=== PATIENT | female | born 1950 | race Caucasian/White ===

== ENCOUNTER 2017-10-23 07:37 | Outpatient (CLI) | payer MEDICARE, BC ==
--- NOTE | 2017-10-23 14:30 | NM ---
NUCLEAR GASTRIC EMPTYING EXAM: INDICATION: Functional dyspepsia. FINDINGS: Using geometric means, varying emptying times of the gastric lumen are performed. There is 13% empty ing at 23 minutes, 55% emptying at 99 minutes, 84% emptying at 168 minutes, and complete emptying erna culated at 219 minutes. The projected half-time is 94 minutes. IMPRESSION: Nuclear medicine gastric emptying exam, as discussed above. POS: [facility]
== END 2017-10-23 07:38 | disposition home or self-care (01) ==
LOC: NM 07:37
PROVIDERS: ATTEND Internal Medicine Gastroenterology
DX: K21.9 Gastro-esophageal reflux disease without esophagitis (principal)
CPT/HCPCS: 78264; A9541

== ENCOUNTER 2018-10-02 21:10 | Emergency (ER) | payer MEDICARE, BC ==
[2018-10-02 22:00] LABS: #Basophils 0.1 thou/uL (0.0-0.2); #Eosinphils 0.2 thou/uL (0.0-0.7); #Lymphocytes 3.5 thou/uL (1.20-3.40); #Monocytes 0.8 thou/uL (0.11-0.59); #Neutrophils 3.5 thou/uL (1.40-6.50); %Basophils 1.2 % (0.0-1.0); %Eosinophils 2.2 % (0.0-10.0); %Lymphocytes 43.8 % (21.0-51.0); %Monocytes 9.6 % (0.0-10.0); %Neutrophils 43.3 % (42.0-75.0); Hemoglobin 12.3 g/dL (12.0-16.0); Mean Corpuscular Hemoglobin 30.5 pg (27.0-31.0); Mean Corpuscular Volume 92.4 fL (78.0-98.0); Mean Platelet Volume 8.7 fL (7.4-10.4); Platelet Count 220 thou/uL (130-400); RBC Distribution Width 12.4 % (11.5-14.5); Red Blood Cell (RBC) Count 4.03 mill/uL (4.20-5.40); White Blood Cell (WBC) Count 8.1 thou/uL (4.8-10.8)
--- NOTE | 2018-10-02 22:06 | RAD ---
AP VIEW CHEST: 10/02/18 HISTORY: Cardiac palpitations. AP view chest obtained on 10/02/18. Comparison made to previous exam from 10/13/16. AP view chest demonstrates sternotomy wires seen. The intracardiac pacing device has been removed. No evidence of acute intrathoracic masses or lesions seen. No evidence of effusions seen. IMPRESSION: No evidence of acute intrathoracic abnormality seen. POS: [facility]
[2018-10-02 22:21] LABS: ALT (SGPT) 11 U/L (8-55); AST (SGOT) 14 U/L (5-34); Albumin 3.8 g/dL (3.4-4.8); Alkaline Phosphatase 70 U/L (40-150); Anion Gap 13 mmol/L (10-20); BUN (Urea Nitrogen) 14 mg/dL (9.8-20.1); Bilirubin, Total 0.4 mg/dL (0.2-1.2); Calc. Creatinine Clearance 0 mL/min (70-130); Calcium 8.9 mg/dL (7.8-10.44); Carbon Dioxide 22 mmol/L (23-31); Chloride 108 mmol/L (98-107); Estimated GFR-MDRD 42; Globulin 2.8 g/dL (2.4-3.5); Glucose 151 mg/dL (80-115); Potassium 3.8 mmol/L (3.5-5.1); Protein, Total 6.6 g/dL (6.0-8.3); Sodium 139 mmol/L (136-145)
== END 2018-10-03 00:20 | disposition home or self-care (01) ==
LOC: ERS 21:10
DX: R00.2 Palpitations (principal); F41.9 Anxiety disorder, unspecified; I48.91 Unspecified atrial fibrillation; E03.9 Hypothyroidism, unspecified; F32.9 Major depressive disorder, single episode, unspecified
CPT/HCPCS: 36415; 71045; 80053; 83880; 84443; 84484; 85025; 93005

== ENCOUNTER 2019-02-05 07:30 | Outpatient (CLI) | payer MEDICARE, BC ==
--- NOTE | 2019-02-05 08:33 | CT ---
CT chest with IV contrast: INDICATIONS:Exam performed in follow-up to a chest x-ray performed outside institution which describe d a nodular density right upper lung. COMPARISON:Chest film 10/02/2018 and 10/13/2016 FINDINGS: There is a 1.6 cm pleural-based nodular soft tissue mass density posterior right upper lung. There is mild associated pleural thickening. There are numerous other nodules seen in the right lung. More inferiorly there are two 4 mm nodular d ensity near the pleural surface laterally, image 43 5 mm nodule along the fissure, image 58 8 mm nodule along the fissure right mid lung, image 61 8 mm nodule near the hilum right mid lung, image 59. Two 4 to 6 mm nodules right lower lobe, image 66. 4 mm nodule right lower lobe, image 70. 5 mm nodule right lower lobe, image 80. 6 mm nodule left lower lobe, image 72. No other left lung nodules identified. No evidence of inflammatory infiltrate. No evidence of effusio n. No evidence of mediastinal or hilar adenopathy. Thoracic aorta is opacified and unremarkable. Proxima l pulmonary arteries are opacified and unremarkable. No evidence of proximal pulmonary embolus. Small fixed sliding diaphragmatic hernia. Images through upper abdomen reveal a cystic mass in the right upper lobe of liver under the hemidiap hragm measuring 5.5 cm. There are least 2 smaller cystic lesions in the liver, one in the left lobe measuring 1 cm. Another in the more inferior right lobe, incompletely evaluated. IMPRESSION: 1. There are numerous right lung pulmonary nodules and at least one nodule in the left lower lobe as described above. A pleural-based nodule in the posterior right upper lobe corresponds to the density seen on outside chest x-ray. Consider PET scan to assess for metastatic lesions. 2. Numerous cystic lesions in the liver, incompletely evaluated. 3. Fixed sliding diaphragmatic hernia
== END 2019-02-05 07:31 | disposition home or self-care (01) ==
LOC: BICCT 07:30
PROVIDERS: ATTEND Internal Medicine
DX: R91.8 Other nonspecific abnormal finding of lung field (principal); K44.9 Diaphragmatic hernia without obstruction or gangrene
CPT/HCPCS: 71260; 82565

== ENCOUNTER 2019-03-05 09:08 | Outpatient (CLI) | payer MEDICARE, BC ==
--- NOTE | 2019-03-05 13:44 | PET ---
Radionucleotide PET scan with CT attenuation correction HISTORY: Lung nodule. COMPARISON: CT chest exams from 09/28/2015 and 02/05/2019. FINDINGS: Physiologic uptake of radiotracer is apparent within the enteric system, long each urinary tract, and at the muscles of phonation. No abnormal areas of radiotracer uptake are apparent within the mediastinum or associated with the sm all lung nodules detailed on recent CT exam. Particular attention to the pleural-based nodule at the posterolateral aspect of the right upper lobe. Maximum SUV 1.2. Photopenic defects of the liver consistent with large liver cysts. Hiatal hernia and atherosclerosis are apparent on the nondiagnostic CT attenuation correction images. IMPRESSION: No hypermetabolic lung nodules are apparent. The pleural-based nodule at the posterolateral aspect of the right upper lobe on recent CT is in an a jasper of atelectasis on the prior CT from 09/28/2015. Based on the overall findings, follow-up is likely not necessary.
== END 2019-03-05 09:09 | disposition home or self-care (01) ==
LOC: PET 09:08
PROVIDERS: ATTEND Internal Medicine Critical Care Medicine
DX: R91.1 Solitary pulmonary nodule (principal)
CPT/HCPCS: 78815; A9552

== ENCOUNTER 2019-07-13 08:08 | Outpatient (CLI) | payer MEDICARE, BC ==
--- NOTE | 2019-07-13 09:12 | BD ---
DEXA BONE DENSITY SCAN: DATE: 07/13/2019. COMPARISON: None. HISTORY: Postmenopausal female undergoing screening for osteoporosis. Transcriptions please use the template L1 0.801 -1.7 L2 0.851 -1.6 L3 0.923 -1.5 L4 0.842 -2.0 total 0.855 -1.7 femoral neck 0.613 -2.1 total 0.762 -1.5 FINDINGS: Lumbar Spine: BMD (g/cm2) L1 0.801 T-Score: -1.7 L2 0.851 T-Score: -1.6 L3 0.923 T-Score: -1.5 L4 0.842 T-Score: -2.0 L1-L4 0.855 T-Score: -1.7 Femoral Neck: 0.613 T-Score: -2.1 Total Femur: 0.762 T-Score: -1.5 The FRAX-WHO fracture risk assessment tool is not provided as the patient is reportedly being treated for osteoporosis. IMPRESSION: Lumbar spine and femoral neck/proximal femoral osteopenia, correlating with a moderately increased ri sk for fracture. Transcribed Date/Time: 07/13/2019 9:29 AM
--- NOTE | 2019-07-13 10:35 | MMO ---
Bilateral MAMMO Bilat Screen [facility]. CLINICAL HISTORY: Patient is 68 years old and is seen for screening. The patient has no family history of breast cancer. The patient has no personal history of cancer. The patient has a history of left Cyst Aspiration in ? - benign. VIEWS: The views performed were: bilateral craniocaudal with tomosynthesis and bilateral mediolateral oblique with tomosynthesis. FILMS COMPARED: The present examination has been compared to prior imaging studies performed at [facility] on 07/07/2008 and 05/28/2016. This study has been interpreted with the assistance of computer-aided detection. MAMMOGRAM FINDINGS: There are scattered fibroglandular densities. There are no suspicious masses, suspicious calcifications, or new areas of architectural distortion. IMPRESSION: THERE IS NO MAMMOGRAPHIC EVIDENCE OF MALIGNANCY. A ROUTINE FOLLOW-UP MAMMOGRAM IN 1 YEAR IS RECOMMENDED. THE RESULTS OF THIS EXAM WERE SENT TO THE PATIENT. ACR BI-RADS Category 1 - Negative MAMMOGRAPHY NOTE: 1. A negative mammogram report should not delay a biopsy if a dominant of clinically suspicious mass is present. 2. Approximately 10% to 15% of breast cancers are not detected by mammography. 3. Adenosis and dense breasts may obscure an underlying neoplasm. Reported by: Meghan MCGREGOR Electonically Signed: [id number]
== END 2019-07-13 08:09 | disposition home or self-care (01) ==
LOC: BICMAMMO 08:08
PROVIDERS: ATTEND Internal Medicine Cardiovascular Disease
DX: M81.0 Age-related osteoporosis without current pathological fracture (principal); Z12.31 Encounter for screening mammogram for malignant neoplasm of breast; M85.89 Other specified disorders of bone density and structure, multiple sites; Z91.89 Other specified personal risk factors, not elsewhere classified
CPT/HCPCS: 77063; 77067; 77080

== ENCOUNTER 2020-03-16 10:02 | Outpatient (CLI) | payer MEDICARE, BC ==
--- NOTE | 2020-03-16 11:01 | CT ---
CT THORAX NONCONTRAST: DATE: 03/16/2020 HISTORY: 69-year-old female follow-up pulmonary nodules COMPARISON: 02/05/2019 FINDINGS: At posterior segment of right upper lobe, broadly abutting posterior lateral pleural surface, a 1.5 x 0.8 x 1.4 cm noncalcified nodule, is unchanged. Several noncalcified nodules abutting right major fissure represent benign pulmonary fissural cysts, and are unchanged. The 0.6 cm pulmonary nodule at lateral basilar segment of left lower lobe, with adjacent mild pulmona ry scar, is unchanged. There has been no interval growth in the other previously mentioned tiny bilateral pulmonary nodules. No new suspicious pulmonary nodules. No cardiomegaly, aortic aneurysm, mediastinal lymphadenopathy, pleural effusion, pneumothorax, or bul lous disease. Trachea and major bronchi are patent and clear. 6.4 x 5 cm right lobe hepatic cyst, unchanged. Small sliding hiatal hernia, unchanged. Sternotomy wires. No overall interval change. IMPRESSION: 1) no interval change in the multiple bilateral tiny benign pulmonary nodules. 2) no interval change in the right posterior pleural-based 15 mm nodule at posterior segment of right upper lobe. 3) small sliding hiatal hernia. 4) evidence for previous open-heart surgery. 5) no interval change overall
== END 2020-03-16 10:03 | disposition home or self-care (01) ==
LOC: BICCT 10:02
PROVIDERS: ATTEND Internal Medicine Critical Care Medicine
DX: R91.8 Other nonspecific abnormal finding of lung field (principal); K44.9 Diaphragmatic hernia without obstruction or gangrene; Z98.890 Other specified postprocedural states
CPT/HCPCS: 71250

== ENCOUNTER 2020-03-24 04:24 | Emergency (ER) | payer MEDICARE, BC ==
[2020-03-24 05:06] LABS: #Basophils 0.1 thou/uL (0.0-0.2); #Eosinphils 0.2 thou/uL (0.0-0.7); #Lymphocytes 3.5 thou/uL (1.20-3.40); #Monocytes 0.7 thou/uL (0.11-0.59); %Basophils 0.8 % (0.0-1.0); %Eosinophils 1.9 % (0.0-10.0); %Lymphocytes 41.7 % (21.0-51.0); %Monocytes 8.2 % (0.0-10.0); %Neutrophils 47.6 % (42.0-75.0); Hemoglobin 13.3 g/dL (12.0-16.0); Mean Corpuscular HGB CONC 32.3 g/dL (32.0-36.0); Mean Corpuscular Hemoglobin 27.7 pg (27.0-31.0); Mean Corpuscular Volume 85.8 fL (78.0-98.0); Mean Platelet Volume 8.8 fL (7.4-10.4); Platelet Count 226 thou/uL (130-400); RBC Distribution Width 12.7 % (11.5-14.5); Red Blood Cell (RBC) Count 4.79 mill/uL (4.20-5.40); White Blood Cell (WBC) Count 8.3 thou/uL (4.8-10.8)
[2020-03-24 05:25] LABS: ALT (SGPT) 12 U/L (8-55); AST (SGOT) 12 U/L (5-34); Albumin 3.9 g/dL (3.4-4.8); Alkaline Phosphatase 81 U/L (40-110); Anion Gap 14 mmol/L (10-20); BUN (Urea Nitrogen) 23 mg/dL (9.8-20.1); Bilirubin, Total 0.3 mg/dL (0.2-1.2); Calc. Creatinine Clearance 0 mL/min (70-130); Calcium 9.2 mg/dL (7.8-10.44); Carbon Dioxide 19 mmol/L (23-31); Chloride 108 mmol/L (98-107); Estimated GFR-MDRD 68; Globulin 3.1 g/dL (2.4-3.5); Glucose 164 mg/dL (80-115); Potassium 3.9 mmol/L (3.5-5.1); Sodium 137 mmol/L (136-145)
--- NOTE | 2020-03-24 07:34 | RAD ---
RADIOGRAPH CHEST 1 VIEW: DATE: 03/24/2020 HISTORY: 69-year-old female with palpitations FINDINGS: There are no airspace densities, pulmonary edema, pneumothorax, or cardiomegaly. The lateral costophr enic angles are sharp. Sternotomy wires. IMPRESSION: No acute cardiopulmonary findings.
== END 2020-03-24 08:19 | disposition home or self-care (01) ==
LOC: ERS 04:24
DX: R00.2 Palpitations (principal); E78.5 Hyperlipidemia, unspecified; E78.00 Pure hypercholesterolemia, unspecified; E03.9 Hypothyroidism, unspecified; I48.91 Unspecified atrial fibrillation; F41.9 Anxiety disorder, unspecified; F32.9 Major depressive disorder, single episode, unspecified; Z79.82 Long term (current) use of aspirin; Z79.899 Other long term (current) drug therapy
CPT/HCPCS: 36415; 71045; 80053; 84443; 84484; 85025; 93005

== ENCOUNTER 2020-10-01 12:53 | Emergency (ER) | payer MEDICARE, BC ==
[~2020-10-01 12:53] MED LIST: Iopamidol-370 76% 500 ML 1 ML ONE
--- NOTE | 2020-10-01 13:21 | RAD ---
Chest AP view INDICATION: Shortness breath, nausea and chest pain COMPARISON: Prior exam dated March 24, 2020 FINDINGS: Lungs: The lungs are clear Cardiac silhouette: Midline sternotomy changes are stable. Heart size is normal. Vascular calcificat ions of the aortic arch are stable. Pulmonary vasculature: Normal Pleural spaces: No pleural effusion or pneumothorax is demonstrated. Upper abdomen: No abnormality seen. Osseous structures: No acute osseous abnormality. Additional findings: None. IMPRESSION: No acute cardiopulmonary abnormality.
[2020-10-01 13:40] LABS: #Eosinphils 0.1 thou/uL (0.0-0.7); #Lymphocytes 2.5 thou/uL (1.20-3.40); #Monocytes 0.7 thou/uL (0.11-0.59); #Neutrophils 8.8 thou/uL (1.40-6.50); %Basophils 0.4 % (0.0-1.0); %Eosinophils 1.2 % (0.0-10.0); %Lymphocytes 20.5 % (21.0-51.0); %Monocytes 5.6 % (0.0-10.0); %Neutrophils 72.3 % (42.0-75.0); Hemoglobin 14.2 g/dL (12.0-16.0); Mean Corpuscular HGB CONC 33.7 g/dL (32.0-36.0); Mean Corpuscular Hemoglobin 28.4 pg (27.0-31.0); Mean Corpuscular Volume 84.4 fL (78.0-98.0); Mean Platelet Volume 9.1 fL (7.4-10.4); Platelet Count 217 thou/uL (130-400); Red Blood Cell (RBC) Count 4.98 mill/uL (4.20-5.40); White Blood Cell (WBC) Count 12.2 thou/uL (4.8-10.8)
[2020-10-01 14:02] LABS: ALT (SGPT) 19 U/L (8-55); AST (SGOT) 21 U/L (5-34); Albumin 3.9 g/dL (3.4-4.8); Alkaline Phosphatase 69 U/L (40-110); Anion Gap 14 mmol/L (10-20); BUN (Urea Nitrogen) 15 mg/dL (9.8-20.1); Bilirubin, Total 0.4 mg/dL (0.2-1.2); CK (CPK) 58 U/L (29-168); Calc. Creatinine Clearance 0 mL/min (70-130); Calcium 8.6 mg/dL (7.8-10.44); Carbon Dioxide 17 mmol/L (23-31); Chloride 112 mmol/L (98-107); Globulin 3.5 g/dL (2.4-3.5); Glucose 158 mg/dL (80-115); Lipase 27 U/L (8-78); Potassium 4.3 mmol/L (3.5-5.1); Protein, Total 7.4 g/dL (5.8-8.1); Sodium 139 mmol/L (136-145)
[2020-10-01] MEDS ORDERED: Lidocaine Viscous Sol 2% 15 ml UD Cup ONE (14:50)
[2020-10-01] MEDS ORDERED: Mag-Al 1200 mg/1200 mg/30 ML UDCUP ONE (14:50)
--- NOTE | 2020-10-01 15:20 | CT ---
CTA Angio Chest W WO Con 10/01/2020 2:52 PM Indication: Elevated d-dimer and substernal chest pain Technique: Multiple CTA images were obtained of the thorax with IV contrast. 3-D rendering: MIP alirio nstructed images were created and reviewed. Comparison: CT the thorax without contrast dated March 16, 2020 Findings: Pulmonary arteries: No central or segmental pulmonary embolus is evident. Heart and Aorta: There is scattered thoracic aortic and coronary artery calcifications. Mediastinum:No enlarged lymph nodes Lungs:The scattered pulmonary nodules are stable. The largest pleural-based nodule involving the post erior right upper lobe is stable. Pleural space: Clear. Upper Abdomen: A small hiatal hernia. There are stable hepatic cysts. The gallbladder surgically abs ent. Osseous Structures: Stable midline sternotomy changes. There is scattered degenerative and osteoarth ritic change present. Soft tissues:No abnormality. Other findings:None. Impression: No central or segmental pulmonary embolus.
[2020-10-01 15:58] LABS: Troponin I Less than 0.010 ng/mL (< 0.028)
== END 2020-10-01 16:30 | disposition home or self-care (01) ==
LOC: ERS 12:53
DX: R07.2 Precordial pain (principal); E78.00 Pure hypercholesterolemia, unspecified; E03.9 Hypothyroidism, unspecified; Z79.82 Long term (current) use of aspirin; Z79.899 Other long term (current) drug therapy
CPT/HCPCS: 36415; 71045; 71275; 80053; 82550; 83690; 84484; 85025; 85379; 93005; Q9967

== ENCOUNTER 2021-03-27 07:50 | Inpatient (IN) | payer MEDICARE, BC ==
[2021-03-27 08:45] LABS: #Basophils 0.1 thou/uL (0.0-0.2); #Lymphocytes 1.5 thou/uL (1.20-3.40); #Monocytes 0.5 thou/uL (0.11-0.59); %Basophils 0.4 % (0.0-1.0); %Eosinophils 0.2 % (0.0-10.0); %Lymphocytes 9.1 % (21.0-51.0); %Monocytes 3.4 % (0.0-10.0); %Neutrophils 86.9 % (42.0-75.0); Mean Corpuscular HGB CONC 33.8 g/dL (32.0-36.0); Mean Corpuscular Volume 88.6 fL (78.0-98.0); Platelet Count 196 thou/uL (130-400); RBC Distribution Width 12.9 % (11.5-14.5); Red Blood Cell (RBC) Count 5.34 mill/uL (4.20-5.40); White Blood Cell (WBC) Count 16.1 thou/uL (4.8-10.8)
[2021-03-27] MEDS ORDERED: Fentanyl 100 MCG/2 ML VIAL ONE (08:47)
[2021-03-27] MEDS ORDERED: Ondansetron PF 4 MG/2 ML Vial ONE (08:48)
[2021-03-27 09:11] LABS: ALT (SGPT) 32 U/L (8-55); AST (SGOT) 30 U/L (5-34); Albumin 4.4 g/dL (3.4-4.8); Alkaline Phosphatase 69 U/L (40-110); Anion Gap 13 mmol/L (10-20); BUN (Urea Nitrogen) 24 mg/dL (9.8-20.1); Bilirubin, Total 0.6 mg/dL (0.2-1.2); Calc. Creatinine Clearance 0 mL/min (70-130); Calcium 9.2 mg/dL (7.8-10.44); Carbon Dioxide 18 mmol/L (23-31); Chloride 108 mmol/L (98-107); Globulin 3.4 g/dL (2.4-3.5); Glucose 207 mg/dL (80-115); Lipase 30 U/L (8-78); Magnesium 1.7 mg/dL (1.6-2.6); Potassium 3.8 mmol/L (3.5-5.1); Protein, Total 7.8 g/dL (5.8-8.1); Sodium 135 mmol/L (136-145)
[2021-03-27] MEDS ORDERED: Cefepime 2 GM VIAL ONE (11:18)
[2021-03-27] MEDS ORDERED: hydrALAZINE 20 MG/ML VIAL SLOW IVP PRN (11:39)
[2021-03-27] MEDS ORDERED: metroNIDAZOLE 500 MG/100 ML BAG ONE (12:07)
[2021-03-27] MEDS ORDERED: Magnesium 2 GM/50 ML BAG (IN WATER) ONE (12:07)
[2021-03-27 12:10] LABS: SARS-CoV-2 NAA Rapid Test Not Detected (NotDetected)
[2021-03-27] MEDS ORDERED: Acetaminophen 325 MG TAB PO PRN (12:22)
[2021-03-27] MEDS ORDERED: Ondansetron ODT 4 MG TAB PO PRN (12:22)
[2021-03-27] MEDS ORDERED: Calcium Carbonate 500 MG ChewTAB PO PRN (12:22)
[2021-03-27] MEDS ORDERED: Dextrose 50% Abboject 50 ML SYRINGE SLOW IVP PRN (12:27)
[2021-03-27] MEDS ORDERED: Insulin Regular 300 UNITS/3 ML VIAL SC PRN ×2 (12:27)
[2021-03-27] MEDS ORDERED: Dextrose 5% in Water 1,000 ML IV PRN (12:27)
[2021-03-27] MEDS ORDERED: Nitroglycerin 2% Ointment 1 INCH/1 GM Packet TOP SCH (12:30)
[2021-03-27 12:47] LABS: Bilirubin Negative (Negative); Blood, Urine Negative (Negative); Clarity Clear (Clear); Glucose, Urine (Dipstick) 300 mg/dL (Negative); Ketone, Urine 20 mg/dL (Negative); Leukocyte Negative Leu/uL (Negative); Nitrite Negative (Negative); Protein, Urine (Dipstick) Negative (Neg-Trace); Urobilinogen Normal mg/dL (Less than 2)
[2021-03-27 12:48] LABS: Specific Gravity, Urine 1.045 (1.002-1.036)
[2021-03-27] MEDS ORDERED: Iopamidol-370 76% 500 ML 1 ML ONE (13:34)
[2021-03-27] MEDS: NS 0.9% w/ 20 MEQ KCL 1,000 ML/1,000 ML BAG IV SCH (13:54)
[2021-03-27] MEDS: Ondansetron PF 4 MG/2 ML Vial IVP PRN ×2 (15:02→23:49)
[2021-03-27 15:16] VITALS: BMI 30.9
[2021-03-27] MEDS ORDERED: Electrolyte Replacement Protocol 1 EACH FS SCH (19:30)
[2021-03-27] MEDS ORDERED: Pregabalin 25 MG CAP PO SCH (21:00)
[2021-03-27] MEDS ORDERED: Pregabalin 75 MG CAP PO SCH (21:00)
[2021-03-27] MEDS: metroNIDAZOLE 500 MG in Premix Bag 1 BAG IVPB SCH (21:08)
[2021-03-27] MEDS: Tacrolimus 0.5 MG CAP PO SCH (21:09)
[2021-03-27] MEDS: Mycophenolate ER 180 MG TAB PO SCH (21:09)
[2021-03-27] MEDS: Pregabalin 50 MG CAP PO SCH (21:10)
[2021-03-27] MEDS: CEFEPIME HCL IN DEXTROSE 5 % 1 GM in Premix Bag 1 BAG IVPB SCH (23:49)
[2021-03-28] MEDS: NS 0.9% w/ 20 MEQ KCL 1,000 ML/1,000 ML BAG IV SCH ×2 (04:24→16:33)
[2021-03-28] MEDS: metroNIDAZOLE 500 MG in Premix Bag 1 BAG IVPB SCH ×3 (04:52→21:11)
[2021-03-28 05:30] LABS: #Eosinphils 0.1 thou/uL (0.0-0.7); #Lymphocytes 2.4 thou/uL (1.20-3.40); #Monocytes 0.8 thou/uL (0.11-0.59); %Basophils 0.2 % (0.0-1.0); %Eosinophils 1.3 % (0.0-10.0); %Lymphocytes 29.1 % (21.0-51.0); %Monocytes 9.7 % (0.0-10.0); %Neutrophils 59.7 % (42.0-75.0); Hemoglobin 13.3 g/dL (12.0-16.0); Mean Corpuscular HGB CONC 34.1 g/dL (32.0-36.0); Mean Corpuscular Hemoglobin 30.4 pg (27.0-31.0); Mean Corpuscular Volume 89.4 fL (78.0-98.0); Mean Platelet Volume 9.1 fL (7.4-10.4); Platelet Count 159 thou/uL (130-400); RBC Distribution Width 12.9 % (11.5-14.5); Red Blood Cell (RBC) Count 4.38 mill/uL (4.20-5.40); White Blood Cell (WBC) Count 8.4 thou/uL (4.8-10.8)
[2021-03-28] MEDS ORDERED: Magnesium 2 GM/50 ML 2 GM in Premix Bag 1 BAG IVPB SCH (05:30)
[2021-03-28 06:00] LABS: ALT (SGPT) 26 U/L (8-55); AST (SGOT) 24 U/L (5-34); Albumin 3.3 g/dL (3.4-4.8); Alkaline Phosphatase 51 U/L (40-110); Anion Gap 8 mmol/L (10-20); BUN (Urea Nitrogen) 8 mg/dL (9.8-20.1); Bilirubin, Total 0.6 mg/dL (0.2-1.2); Calc. Creatinine Clearance 96 mL/min (70-130); Calcium 7.7 mg/dL (7.8-10.44); Carbon Dioxide 18 mmol/L (23-31); Chloride 113 mmol/L (98-107); Globulin 2.4 g/dL (2.4-3.5); Glucose 141 mg/dL (80-115); Magnesium 1.8 mg/dL (1.6-2.6); Phosphorus 1.8 mg/dL (2.3-4.7); Potassium 3.4 mmol/L (3.5-5.1); Protein, Total 5.7 g/dL (5.8-8.1); Sodium 136 mmol/L (136-145)
[2021-03-28] MEDS ORDERED: Potassium Chloride 20 MEQ TAB PO SCH (07:15)
[2021-03-28] MEDS: Ondansetron PF 4 MG/2 ML Vial IVP PRN ×2 (07:49→17:19)
[2021-03-28] MEDS: Pregabalin 50 MG CAP PO SCH ×2 (08:31→21:08)
[2021-03-28] MEDS: Aspirin Chewable 81 MG TAB PO SCH (08:32)
[2021-03-28] MEDS: Tacrolimus 0.5 MG CAP PO SCH ×2 (08:32→21:09)
[2021-03-28] MEDS: Mycophenolate ER 180 MG TAB PO SCH ×2 (08:32→21:08)
[2021-03-28] MEDS: PHOS-NAK 1 PKT PACK PO SCH ×2 (08:32→12:14)
[2021-03-28] MEDS ORDERED: Non-Formulary Item 1 EACH (Insulin Glargine,Hum.Rec.Anlog [Toujeo Solostar] 300 UNIT/ML I SQ SCH (09:00)
[2021-03-28] MEDS ORDERED: Promethazine HCl 12.5 MG in Sodium Chloride 0.9% 50 ML IVPB PRN (10:04)
[2021-03-28] MEDS ORDERED: Loperamide HCl 2 MG CAP PO PRN (12:48)
[2021-03-28] MEDS: CEFEPIME HCL IN DEXTROSE 5 % 1 GM in Premix Bag 1 BAG IVPB SCH (12:56)
[2021-03-28] MEDS ORDERED: Potassium Phosphate 15 MMOL in Sodium Chloride 0.9% 250 ML 250 ML IVPB SCH (13:00)
[2021-03-28] MEDS ORDERED: Enoxaparin Sodium 40 MG/0.4 ML SYRINGE SC SCH (21:00)
[2021-03-29] MEDS: CEFEPIME HCL IN DEXTROSE 5 % 1 GM in Premix Bag 1 BAG IVPB SCH ×2 (01:00→13:10)
[2021-03-29] MEDS: metroNIDAZOLE 500 MG in Premix Bag 1 BAG IVPB SCH ×2 (04:45→13:59)
[2021-03-29 04:56] LABS: #Eosinphils 0.2 thou/uL (0.0-0.7); #Lymphocytes 2.8 thou/uL (1.20-3.40); #Monocytes 0.6 thou/uL (0.11-0.59); #Neutrophils 3.7 thou/uL (1.40-6.50); %Basophils 0.3 % (0.0-1.0); %Eosinophils 3.3 % (0.0-10.0); %Lymphocytes 37.5 % (21.0-51.0); %Monocytes 8.5 % (0.0-10.0); %Neutrophils 50.3 % (42.0-75.0); Hemoglobin 13.7 g/dL (12.0-16.0); Mean Corpuscular HGB CONC 34.3 g/dL (32.0-36.0); Mean Corpuscular Hemoglobin 30.7 pg (27.0-31.0); Mean Corpuscular Volume 89.3 fL (78.0-98.0); Mean Platelet Volume 8.8 fL (7.4-10.4); Platelet Count 147 thou/uL (130-400); RBC Distribution Width 12.9 % (11.5-14.5); Red Blood Cell (RBC) Count 4.47 mill/uL (4.20-5.40); White Blood Cell (WBC) Count 7.4 thou/uL (4.8-10.8)
[2021-03-29 05:12] LABS: Albumin 3.3 g/dL (3.4-4.8); Anion Gap 8 mmol/L (10-20); BUN (Urea Nitrogen) 6 mg/dL (9.8-20.1); BUN/Creatinine Ratio 8.33; Calc. Creatinine Clearance 95 mL/min (70-130); Calcium 7.9 mg/dL (7.8-10.44); Carbon Dioxide 23 mmol/L (23-31); Chloride 110 mmol/L (98-107); Glucose 107 mg/dL (80-115); Potassium 3.9 mmol/L (3.5-5.1); Sodium 137 mmol/L (136-145)
[2021-03-29 05:26] LABS: Phosphorus 1.7 mg/dL (2.3-4.7)
[2021-03-29] MEDS ORDERED: Potassium Phosphate 15 MMOL in Sodium Chloride 0.9% 250 ML 250 ML IVPB SCH (07:30)
[2021-03-29 07:33] VITALS: TEMP 97.9
[2021-03-29] MEDS ORDERED: Potassium Phosphate 15 MMOL in Sodium Chloride 0.9% 100 ML IVPB SCH (08:00)
[2021-03-29] MEDS: Aspirin Chewable 81 MG TAB PO SCH (08:09)
[2021-03-29] MEDS: Pregabalin 50 MG CAP PO SCH (08:10)
[2021-03-29] MEDS: Mycophenolate ER 180 MG TAB PO SCH (08:10)
[2021-03-29] MEDS: Tacrolimus 0.5 MG CAP PO SCH (08:22)
[2021-03-29 15:13] VITALS: BP 112/70
== END 2021-03-29 18:10 | disposition home or self-care (01) | DRG 872 ==
LOC: ERS 07:50 → ERHOLD 12:00 → 2NO 15:27
PROVIDERS: ADMIT Internal Medicine; ATTEND Internal Medicine
DX: A41.4 Sepsis due to anaerobes (principal); A09 Infectious gastroenteritis and colitis, unspecified; E87.1 Hypo-osmolality and hyponatremia; Z94.1 Heart transplant status; Z20.822 Contact with and (suspected) exposure to COVID-19; E11.9 Type 2 diabetes mellitus without complications; E87.6 Hypokalemia; E83.42 Hypomagnesemia; E78.5 Hyperlipidemia, unspecified; E03.9 Hypothyroidism, unspecified; I10 Essential (primary) hypertension; K21.9 Gastro-esophageal reflux disease without esophagitis; I16.0 Hypertensive urgency; I48.0 Paroxysmal atrial fibrillation; K76.89 Other specified diseases of liver; E78.00 Pure hypercholesterolemia, unspecified; K57.90 Diverticulosis of intestine, part unspecified, without perforation or abscess without bleeding; Z88.5 Allergy status to narcotic agent; Z88.1 Allergy status to other antibiotic agents; Z88.8 Allergy status to other drugs, medicaments and biological substances; Z79.890 Hormone replacement therapy; Z79.82 Long term (current) use of aspirin; Z79.4 Long term (current) use of insulin; Z79.899 Other long term (current) drug therapy; Z95.810 Presence of automatic (implantable) cardiac defibrillator; Z90.49 Acquired absence of other specified parts of digestive tract; Z90.710 Acquired absence of both cervix and uterus
CPT/HCPCS: 0240U; 36415; 36416; 71045; 74177; 80053; 80069; 81003; 82274; 83630; 83690; 83735; 84100; 84484; 85025; 86140; 87040; 87045; 87046; 87324; 87328; 87329; 87427; 87449; 93005; 94760; 96361; 96365; 96367; 96368; 96372; 96375; J0500; J0692; J1650; J2405; J2550; J3010; J3475; J3480; J3490; J7050; J7507; J7518; Q9967

== ENCOUNTER 2021-04-03 10:54 | Outpatient (CLI) | payer MEDICARE, BC | END 2021-04-03 10:55 | disposition home or self-care (01) | LOC: BICCT 10:54 | PROVIDERS: ATTEND Internal Medicine Critical Care Medicine | DX: R91.8 Other nonspecific abnormal finding of lung field (principal); J98.4 Other disorders of lung | CPT/HCPCS: 71250 ==

== ENCOUNTER 2021-05-28 16:52 | Emergency (ER) | payer MEDICARE, BC ==
[2021-05-28 17:36] LABS: #Basophils 0.1 thou/uL (0.0-0.2); #Eosinphils 0.1 thou/uL (0.0-0.7); #Lymphocytes 3.8 thou/uL (1.20-3.40); #Monocytes 0.9 thou/uL (0.11-0.59); #Neutrophils 5.8 thou/uL (1.40-6.50); %Basophils 0.9 % (0.0-1.0); %Eosinophils 1.3 % (0.0-10.0); %Lymphocytes 35.5 % (21.0-51.0); %Monocytes 8.2 % (0.0-10.0); %Neutrophils 54.2 % (42.0-75.0); Hemoglobin 13.8 g/dL (12.0-16.0); Mean Corpuscular HGB CONC 35.3 g/dL (32.0-36.0); Mean Corpuscular Hemoglobin 31.5 pg (27.0-31.0); Mean Corpuscular Volume 89.3 fL (78.0-98.0); Mean Platelet Volume 8.9 fL (7.4-10.4); Platelet Count 177 thou/uL (130-400); RBC Distribution Width 12.1 % (11.5-14.5); Red Blood Cell (RBC) Count 4.37 mill/uL (4.20-5.40); White Blood Cell (WBC) Count 10.6 thou/uL (4.8-10.8)
[2021-05-28 18:03] LABS: ALT (SGPT) 13 U/L (8-55); AST (SGOT) 13 U/L (5-34); Albumin 3.7 g/dL (3.4-4.8); Alkaline Phosphatase 54 U/L (40-110); Anion Gap 13 mmol/L (10-20); BUN (Urea Nitrogen) 23 mg/dL (9.8-20.1); Bilirubin, Total 0.4 mg/dL (0.2-1.2); Calc. Creatinine Clearance 0 mL/min (70-130); Calcium 9.3 mg/dL (7.8-10.44); Carbon Dioxide 19 mmol/L (23-31); Chloride 111 mmol/L (98-107); Globulin 3.2 g/dL (2.4-3.5); Glucose 115 mg/dL (80-115); Potassium 3.5 mmol/L (3.5-5.1); Protein, Total 6.9 g/dL (5.8-8.1); Sodium 139 mmol/L (136-145)
[2021-05-28 19:25] LABS: SARS-CoV-2 NAA Rapid Test DETECTED (NotDetected)
[2021-05-28] MEDS ORDERED: Dexamethasone 4 MG TAB ONE (19:46)
== END 2021-05-28 20:16 | disposition home or self-care (01) ==
LOC: ERS 16:52
DX: U07.1 COVID-19 (principal); R00.2 Palpitations; R11.0 Nausea; E78.00 Pure hypercholesterolemia, unspecified; E03.9 Hypothyroidism, unspecified; E11.9 Type 2 diabetes mellitus without complications
CPT/HCPCS: 71045; 80053; 83880; 84484; 85025; 93005; U0002; 36415; J8540

== ENCOUNTER 2021-07-24 10:18 | Outpatient (CLI) | payer MEDICARE, BC | END 2021-07-24 10:19 | disposition home or self-care (01) | LOC: BICMAMMO 10:18 | PROVIDERS: ATTEND Internal Medicine Cardiovascular Disease | DX: Z13.820 Encounter for screening for osteoporosis (principal); M85.89 Other specified disorders of bone density and structure, multiple sites | CPT/HCPCS: 77080 ==

== ENCOUNTER 2021-10-17 13:00 | Outpatient (CLI) | payer MEDICARE, BC | END 2021-10-17 13:01 | disposition home or self-care (01) | LOC: BICMAMMO 13:00 | PROVIDERS: ATTEND Internal Medicine | DX: Z12.31 Encounter for screening mammogram for malignant neoplasm of breast (principal) | CPT/HCPCS: 77063; 77067 ==

== ENCOUNTER 2021-10-20 07:58 | Outpatient (CLI) | payer MEDICARE, BC ==
[2021-10-20] MEDS ORDERED: Iopamidol-370 76% 500 ML 1 ML ONE (11:20)
== END 2021-10-20 07:59 | disposition home or self-care (01) ==
LOC: BICCT 07:58
PROVIDERS: ATTEND Physician Assistant Medical
DX: R10.9 Unspecified abdominal pain (principal); R19.7 Diarrhea, unspecified
CPT/HCPCS: 74177; 82565; Q9967

== ENCOUNTER 2021-12-01 08:52 | Outpatient (CLI) | payer MEDICARE, BC | END 2021-12-01 08:53 | disposition home or self-care (01) | LOC: TBSIIMAG 08:52 | PROVIDERS: ATTEND Neurological Surgery | DX: M54.2 Cervicalgia (principal); M47.812 Spondylosis without myelopathy or radiculopathy, cervical region | CPT/HCPCS: 72141 ==

== ENCOUNTER 2022-04-04 12:45 | Outpatient (CLI) | payer MEDICARE, BC | END 2022-04-04 12:46 | disposition home or self-care (01) | LOC: BICCT 12:45 | PROVIDERS: ATTEND Internal Medicine Critical Care Medicine | DX: R91.8 Other nonspecific abnormal finding of lung field (principal) | CPT/HCPCS: 71250 ==

== ENCOUNTER 2022-11-06 13:11 | Outpatient (CLI) | payer MEDICARE, BC | END 2022-11-06 13:12 | disposition home or self-care (01) | LOC: BICMAMMO 13:11 | PROVIDERS: ATTEND Internal Medicine | DX: Z12.31 Encounter for screening mammogram for malignant neoplasm of breast (principal); M81.0 Age-related osteoporosis without current pathological fracture; M85.89 Other specified disorders of bone density and structure, multiple sites; N63.15 Unspecified lump in the right breast, overlapping quadrants; N63.23 Unspecified lump in the left breast, lower outer quadrant | CPT/HCPCS: 77063; 77067; 77080 ==

== ENCOUNTER 2023-04-02 14:55 | Outpatient (CLI) | payer MEDICARE, BC | END 2023-04-02 14:56 | disposition home or self-care (01) | LOC: BICCT 14:55 | PROVIDERS: ATTEND Internal Medicine Critical Care Medicine | DX: R91.1 Solitary pulmonary nodule (principal) | CPT/HCPCS: 71250 ==

== ENCOUNTER 2023-11-08 12:32 | Outpatient (CLI) | payer MEDICARE, BC | END 2023-11-08 12:33 | disposition home or self-care (01) | LOC: BICCT 12:32 | PROVIDERS: ATTEND Physician Assistant Medical | DX: K21.9 Gastro-esophageal reflux disease without esophagitis (principal); R10.9 Unspecified abdominal pain; R19.7 Diarrhea, unspecified | CPT/HCPCS: 74177; 82565 ==

== ENCOUNTER 2024-06-26 09:31 | Outpatient (CLI) | payer MEDICARE, OTHER | END 2024-06-26 09:32 | disposition home or self-care (01) | LOC: RAD 09:31 | PROVIDERS: ATTEND Internal Medicine Critical Care Medicine | DX: R06.00 Dyspnea, unspecified (principal); R91.1 Solitary pulmonary nodule | CPT/HCPCS: 71046 ==

== ENCOUNTER 2025-06-22 09:33 | Outpatient (CLI) | payer MEDICARE, OTHER | END 2025-06-22 09:34 | disposition home or self-care (01) | LOC: RAD 09:33 | PROVIDERS: ATTEND Internal Medicine Critical Care Medicine | DX: R06.00 Dyspnea, unspecified (principal) | CPT/HCPCS: 71046 ==